=== PATIENT | female | born 1975 | race Caucasian/White ===

== ENCOUNTER 2017-01-15 15:25 | Emergency (ER) | payer OTHER ==
[2017-01-15] MEDS ORDERED: MORPHINE SULFATE 4 MG/ML SYRINGE ONE ×2 (15:54→17:28)
[2017-01-15] MEDS ORDERED: ONDANSETRON 4 MG/2ML 2 ML VIAL ONE (15:54)
[2017-01-15 16:22] LABS: ABSOLUTE NEUTROPHIL COUNT 8.2 K/mm3 (1.8-7.7); BASO # 0.1 K/mm3 (0.0-0.2); BASO % 0.9 % (0.2-1.0); EOS # 0.3 (0.0-0.5); EOS % 2.4 % (0.9-2.9); HEMATOCRIT 43.1 % (37.0-47.0); HEMOGLOBIN 14.9 gm/l (12.0-16.0); IMM NEUT # 0.4 K/mm3 (0-0.2); IMM NEUT% 2.9 % (0-1); LYMPH # 3.4 (1.0-4.8); LYMPH % 24.8 % (15-45); MEAN CELL VOLUME 88.3 fl (81.0-99.0); MEAN CORPUSCULAR HEMOGLOBIN 30.5 pg (27.0-31.0); MEAN CORPUSCULAR HGB CONC 34.6 g/dl (33.0-37.0); MEAN PLATELET VOLUME 12.3 fl (7.4-10.4); MONO # 1.3 (0.0-0.8); MONO % 9.5 % (4-12); NEUT % 59.5 % (43-75); PLATELET COUNT 225 K/mm3 (130-400); RED CELL DISTRIBUTION WIDTH 12.7 % (11.5-14.5)
[2017-01-15 16:31] LABS: ALB/GLOB RATIO 1.5 (>1.0); ALBUMIN 4.3 gm/dL (3.5-5.7); CALCIUM 9.8 mg/dL (8.6-10.3)
[2017-01-15 17:13] LABS: SPECIFIC GRAVITY 1.025 (1.001-1.030); URINE BILIRUBIN NEGATIVE (NEGATIVE); URINE BLOOD TRACE (NEGATIVE); URINE GLUCOSE (UA) NEGATIVE (NEGATIVE); URINE LEUKOCYTE ESTERASE TRACE (NEGATIVE); URINE NITRITE NEGATIVE (NEGATIVE); URINE PROTEIN NEGATIVE (NEGATIVE); URINE UROBILINOGEN NORMAL (0-1 mg/dl)
[2017-01-15 17:14] LABS: URINE APPEARANCE CLEAR; URINE COLOR YELLOW
[2017-01-15 17:36] LABS: URINE BACTERIA RARE; URINE EPITHELIAL CELLS 0-2 /hpf; URINE MUCUS 1+; URINE RBC 0-2 /hpf; URINE WBC 0-2 /hpf
--- NOTE | 2017-01-15 17:37 | US ---
Clinical indication: Left lower quadrant pain known left endometrioma. Pain for 3 weeks. Technique: Transabdominal pelvic sonography was performed.To better visualize the endometrium and adnexa transvaginal sonography was performed. Comparison: Prior examination dated 08/16/2016. Findings: Uterus: The uterus is or likely absent.. No discrete pelvic mass is identified. Adnexa: Right ovary: 3.5 x 3.2 x 1.7 centimeters. There is Doppler flow. Left ovary: 3.5 x 3.5 x 2.4 centimeters. There is Doppler flow. The left ovary again exhibits a complex cystic lesion measuring 2.3 x 2.1 x 1.6 cm. This is similar to slightly smaller in size. Additional smaller hypoechoic focus is also noted the left ovary as well. This is similar to the prior study. Cul-de-sac fluid: None IMPRESSION: 1. No evidence of left ovarian torsion. 2. Left ovarian endometrioma similar to the prior study. 3. Prior hysterectomy. The right adnexa is normal. The findings were uploaded to the electronic medical record for review at approximately 5:37 PM 01/15/2017
== END 2017-01-15 18:05 | disposition home or self-care (01) ==
LOC: ED 15:25
DX: N80.1 Endometriosis of ovary (principal); F17.210 Nicotine dependence, cigarettes, uncomplicated
CPT/HCPCS: 85025; 87086; 80053; 81001; 76856; 76830; 96375; 96376; 99284; 96374; 99283; J2270 ×2; J2405

== ENCOUNTER 2017-01-22 08:17 | Emergency (ER) | payer OTHER ==
[2017-01-22] MEDS ORDERED: KETOROLAC TROMETHAMINE 60 MG/2 ML VIAL ONE (08:45)
== END 2017-01-22 09:55 | disposition home or self-care (01) ==
LOC: ED 08:17
DX: N80.1 Endometriosis of ovary (principal)
CPT/HCPCS: 99283 ×2; 96372; J1885

== ENCOUNTER 2017-01-24 06:47 | Day surgery (SDC) | payer OTHER ==
[~2017-01-24 06:47] MED LIST: LACTATED RINGERS 1,000 ML IV SCH; LIDOCAINE 1% 2 ML VIAL ID PRN
[2017-01-24] MEDS ORDERED: IV START KIT ONE (06:51)
[2017-01-24] MEDS ORDERED: LACTATED RINGERS 1,000 ML ONE (06:51)
[2017-01-24] MEDS ORDERED: MIDAZOLAM HCL 1 MG/ML 2ML VIAL ONE (08:05)
[2017-01-24] MEDS ORDERED: PROPOFOL 20 ML IV ONE (08:05)
[2017-01-24] MEDS ORDERED: ROCURONIUM BROMIDE 10 MG/ML DOSE IV ONE ×3 (08:05→08:08)
[2017-01-24] MEDS ORDERED: LIDOCAINE 2% (MULTI DOSE) 10 ML VIAL ONE (08:05)
[2017-01-24] MEDS ORDERED: FENTANYL 250 MCG/5 ML AMP ONE (08:05)
[2017-01-24] MEDS ORDERED: DEXAMETHASONE SOD PHOS 4 MG/1 ML VIAL ONE ×2 (08:41)
[2017-01-24] MEDS ORDERED: ONDANSETRON 4 MG/2ML 2 ML VIAL ONE ×2 (08:41→10:58)
[2017-01-24] MEDS ORDERED: HYDROMORPHONE HCL 2 MG/ML SYRINGE ONE (09:01)
[2017-01-24] MEDS ORDERED: GLYCOPYRROLATE 0.2 MG/ML 1ML VIAL ONE ×2 (09:39)
[2017-01-24] MEDS ORDERED: NEOSTIGMINE METHYLSULFATE 1 MG/ML DOSE ONE (09:39)
[2017-01-24] MEDS ORDERED: FENTANYL 100 MCG/2 ML VIAL ONE (09:59)
[2017-01-24] MEDS ORDERED: PROMETHAZINE HCL 25 MG/ML VIAL ONE (10:15)
[2017-01-24] MEDS ORDERED: HYDROMORPHONE HCL 1 MG/ML SYRINGE ONE ×2 (10:17→10:58)
[2017-01-24] MEDS ORDERED: D5 1/4NS with 20 mEq KCL 1,000 ML IV ONE (10:58)
[2017-01-24] MEDS ORDERED: PUMP TUBING ONE (10:58)
[2017-01-24] MEDS ORDERED: SODIUM CHLORIDE 0.9% FLUSH 20 ML ONE (10:58)
[2017-01-24 12:31] VITALS: BMI 26.5
[2017-01-24] MEDS ORDERED: ONDANSETRON 4 MG/2ML 2 ML VIAL IV PRN (12:47)
[2017-01-24] MEDS: D5 1/4NS with 20 mEq KCL 1,000 ML IV SCH (15:04)
[2017-01-24] MEDS ORDERED: NICOTINE 14 MG PATCH 1 EACH TD SCH (15:15)
[2017-01-24] MEDS: KETOROLAC TROMETHAMINE 30 MG/ML 1 ML VIAL IV SCH ×2 (15:25→21:29)
[2017-01-24] MEDS: LACTATED RINGERS 1,000 ML IV SCH ×3 (15:37→15:39)
--- NOTE | 2017-01-24 18:43 | OP ---
Charlene Garcia [id number] DATE: 01/24/2017 SURGEON: Ihsan Rojas M.D. [employer] PARAPROFESSIONAL SURGEON: Ammon Case M.D. PREOPERATIVE DIAGNOSIS: Left adnexal mass. POSTOPERATIVE DIAGNOSIS: Probably endometrioma of the left ovary. OPERATION: Laparoscopy followed by laparotomy and left salpingo-oophorectomy. FINDINGS: Extensive adhesions which essentially buried the left Fallopian tube and ovary, it appeared to contain a small endometrioma. Right Fallopian tube and ovary appeared normal. TECHNICAL PROCEDURE: After induction of satisfactory general anesthesia the patient was placed in the supine position. Prepped and draped in the usual fashion. An infraumbilical incision was made with a knife blade. The laparoscope was introduced using a direct entry sheath and trocar. The trocar was removed, laparoscope introduced and the above findings noted. The laparoscope was then removed and the pneumoperitoneum allowed to escape through the sleeve. The sleeve was then removed and the incision closed with two interrupted Vertical mattress sutures of 4-0 Nylon. A laparotomy was then performed. The abdomen was entered in the usual fashion through pfannenstiel type incision. Bowels were packed away with dry laparotomy towels and Bren retractor placed in the incision. The adhesions surrounding the ovary here lysed using sharp and blunt dissection. Attachment of the ovary to the area of the vaginal cuff was clamped with a Pean clamp, divided, and suture ligated with 0 Vicryl. The ovary and Fallopian tube were then freed from the surrounding tissues and the infundibulopelvic ligament isolated, clamped with a Pean clamp, divided, and suture ligated with 0 Vicryl, thus removing the left Fallopian tube and ovary. Hemostasis in the operative site was obtained using an electrocautery. When hemostasis was assured, the laparotomy towels and retractor were removed from the abdomen and the abdomen was closed with a continuous stitch of 2-0 Vicryl. Muscle was closed with interrupted simple stitches of 0 Vicryl. The fascia was closed with a continuous Loop suture of 0 PDS and the skin was closed in a subcuticular fashion using a 4-0 Stratifix suture. Steri-Strips were placed on the incision and the procedure then terminated. The patient tolerated the procedure well and left the operating room awake and in good condition. There were no complications. Instrument, needle, and sponge counts were correct. Estimated blood loss was 100 mL. There was no blood replacement. Specimen was removed from the left Fallopian tube and ovary. JOB: [id number]
[2017-01-24] MEDS: HYDROMORPHONE HCL 1 MG/ML SYRINGE IV PRN (21:28)
[2017-01-25] MEDS: HYDROMORPHONE HCL 1 MG/ML SYRINGE IV PRN ×2 (00:04→03:34)
[2017-01-25] MEDS ORDERED: HYDROMORPHONE HCL 1 MG/ML SYRINGE IV ONE (02:05)
[2017-01-25] MEDS: D5 1/4NS with 20 mEq KCL 1,000 ML IV SCH (03:32)
[2017-01-25] MEDS: KETOROLAC TROMETHAMINE 30 MG/ML 1 ML VIAL IV SCH ×2 (03:33→09:07)
[2017-01-25 06:51] LABS: HEMATOCRIT 35.3 % (37.0-47.0); HEMOGLOBIN 12.1 gm/l (12.0-16.0)
[2017-01-25] MEDS ORDERED: HYDROCODONE/ACETAMINOPHEN 5/325MG TABLET PO PRN (08:44)
--- NOTE | 2017-01-25 10:23 | PDOC43 ---
- Subjective Doing well. Requesting D/C home. Subjective: Reports Flatus, Reports Pain Tolerable, Reports Tolerating PO Regular - Objective Vital Signs Temperature 98.0 F 01/25/17 08:00 Pulse Rate 72 01/25/17 08:00 Respiratory Rate 16 01/25/17 08:00 Blood Pressure 102/55 01/25/17 08:00 O2 Saturation by Pulse Oximetry 93 01/25/17 08:00 Oxygen Delivery Method Room Air Oxygen Flow Rate 0 Laboratory 01/25/17 06:00 Active Medication Orders Category Date Time Status D5 1/4NS with 20 mEq KCL 1,000 ml Med 01/24/17 13:00 Active IV 125 mls/hr Hydrocodone Bit/Acetaminophen [[place] 5/325] Med 01/25/17 08:44 Active 1 tab PO Q4H PRN Hydromorphone HCl [Dilaudid] Med 01/24/17 12:46 Active 1 mg IV Q4H PRN Ketorolac Tromethamine [Toradol] Med 01/24/17 15:40 Active 30 mg IV Q6H Lidocaine 1% Med 01/24/17 06:45 Active 0.1 ml ID X1 PRN Nicotine 14 mg Patch [Nicoderm Cq] Med 01/24/17 15:15 Active 1 each TD Q24H Ondansetron 4 mg/2ml Vial [Zofran] Med 01/24/17 12:47 Active 4 mg IV Q4H PRN Sodium Chloride 0.9% Flush [Normal Saline 10ml Flush] Med 01/24/17 12:44 Active 10 ml IV PRN PRN Sodium Chloride 0.9% Flush [Normal Saline 10ml Flush] Med 01/24/17 17:00 Active 10 ml IV Q8HR Intake and Output 01/23/17 01/24/17 01/25/17 23:59 23:59 23:59 Intake Total 360 3004 Output Total 400 1350 Balance -40 1654 General: Afebrile HEENT: Atraumatic, PERRLA, EOMI Lungs: Clear to Auscultation Bilaterally, Normal Air Movement Cardiovascular: Regular Rate and Rhythm, Normal S1, Normal S2 Abdomen: Soft, Non-Distended, Normal Bowel Sounds 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 Stable for discharge home. Follow up with Dr. Rojas in 2 weeks. - Disposition: Disposition: Anticipate Home Today
--- NOTE | 2017-01-25 10:33 | PDOC5 ---
Hospital Course: ADMIT DATE: DISCHARGE DATE: [01/25/2017] ADMISSION DIAGNOSES: [endometriosis] PROCEDURES: [Laparoscopy converted to laparotomy and salpingectomy] HISTORY OF PRESENT ILLNESS: 42 year old presenting with scheduled laparoscopy HOSPITAL COURSE: The patient presented for her scheduled laparoscopy and underwent surgery that was complicated by the need to convert to laparotomy. She is requesting discharge home on POD#1. By day of discharge the patient is ambulating, eating, voiding, and passing flatus without difficulty. Pain is controlled. 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 Stable for discharge home. Follow up with Dr. Rojas in 2 weeks. - Discharge Plan Condition: Stable Disposition: Home Forms: Discharge Instructions Additional Instructions: Follow up with Dr. Rojas in 2 weeks Prescriptions: Hydrocodone Bit/Acetaminophen [[place] 5/325] 1 tab PO Q4-6H PRN #30 tablet PRN Reason: Pain
[2017-01-25 11:49] VITALS: BP 107/57
[2017-01-25] MEDS ORDERED: HYDROCODONE/ACETAMINOPHEN 5/325MG TABLET PO SCH (21:00)
--- NOTE | 2017-01-28 11:01 | SURGPATH ---
[facility] [address] [place] [id number] Patient Name: JAKE TSAI MR#: [id number] : 1975 Gender: F Specimen #: [id number] Collected: 01/24/2017 Received: 01/27/2017 Reported: 01/28/2017 Submitting Phys: KELVIN AGUIAR Copy To Phys: [facility] ELSI REDMOND Clinical History / Pre-Operative Diagnosis: Left ovarian cyst Specimen Source / Surgical Procedure Performed: Left tube and ovary Interpretation: LEFT FALLOPIAN TUBE AND OVARY, SALPINGO-OOPHORECTOMY: - ENDOMETRIOSIS WITH ENDOMETRIOMA Electronically Signed Out Evangelista Mondragon M.D. Gross Description: The specimen is received in formalin labeled with the patient's name and "left tube and ovary". The specimen consists of a canales bosselated 5.0 x 2.8 x 2.2 cm, 18 g ovary which appears to be intact with a slightly ragged serosa. There is also a 4.5 cm in length fimbriated fallopian tube. Sectioning reveals a 2.5 cm cyst with thick pasty brown apparent clotted blood. There are also a few small hemorrhagic, serous, or corpus luteal cysts. A-D. pest control service representative ANISA Sheikh Microscopic Description: The ovary shows a cystic space filled with blood and the wall shows numerous hemosiderin laden macrophages. Some areas show preserved endometrial glands and stroma. Other deposits of endometriosis are also present. The fallopian tube is unremarkable. 1: [id number] N80.1
== END 2017-01-25 12:00 | disposition home or self-care (01) ==
LOC: SDC 06:47 → MS 13:38 → SDC 01-25 12:00
PROVIDERS: ATTEND Obstetrics & Gynecology
PROC: 0UT60ZZ Resection of Left Fallopian Tube, Open Approach (ICD-10-PCS; principal; 2017-01-24)
PROC: 0UT10ZZ Resection of Left Ovary, Open Approach (ICD-10-PCS; 2017-01-24)
DX: N80.1 Endometriosis of ovary (principal)
CPT/HCPCS: 85014; 85018; 36415; 58720; J1170 ×6; J3010 ×2; J1100 ×2; A9270 ×2; J2550; J1885 ×4; J2250; J2405 ×3; J7120; J2001